=== PATIENT | female | born 1930 | race Caucasian/White ===

== ENCOUNTER 2017-03-14 11:36 | Emergency (ER) | payer MEDICARE, BC ==
[2017-03-14 15:22] VITALS: BP 138/62
--- NOTE | 2017-03-14 22:10 | ED ---
Celia Yancey Alok, scribed for Bradley Lara MD on 03/14/17 at 1528 . Hypertension - HPI Summary HPI Summary: 86 y/o female presents to the ED sent here from [address] [place] [address] for HTN. Pt states that she was recently treated for a UTI and has been taking Dementin Antibioitics since yesterday. Pt states she feels somewhat fatigued and mild "head fuzziness" and mild back tenderness. Pt states she has been drinking/ eating normally. Pt denies CP, SOB, or dizziness. Pt denies hematuria or dysuria. Pt denies fever. Pt takes Lisinopril 10 mg and Coumadin. - History of Current Complaint Chief Complaint: EDGeneral Stated Complaint: HIGH BP Time Seen by Provider: 03/14/17 14:41 Hx Obtained From: Patient Onset/Duration: Started Hours Ago, Atraumatic, Still Present Associated Signs & Symptoms: Negative - Allergies/Home Medications Allergies/Adverse Reactions: Allergies Allergy/AdvReac Type Severity Reaction Status Date / Time Sulfa Drugs Allergy Mild Rash Verified 09/27/15 14:48 Ciprofloxacin Allergy Rash Verified 09/27/15 14:48 Oxycodone Allergy Vomiting Verified 09/27/15 14:48 General anesthesia AdvReac Severe Hallucinati Uncoded 09/27/15 14:48 ons PMH/Surg Hx/FS Hx/Imm Hx Endocrine/Hematology History: Reports: Hx Anticoagulant Therapy - COUMADIN Denies: Hx Diabetes, Hx Thyroid Disease Cardiovascular History: Reports: Hx Auto Implanted Cardiovert Defib, Hx Hypertension, Hx Pacemaker/ICD - JANUARY 2012 Respiratory History: Denies: Hx Asthma, Hx Chronic Obstructive Pulmonary Disease (COPD) GI History: Reports: Other GI Disorders - COLITIS, INTESTINAL CYSTS History: Denies: Hx Renal Disease Musculoskeletal History: Reports: Hx Arthritis Denies: Hx Back Problems, Hx Bursitis, Hx Congenital Bone Abnormalities, Hx Fibromyalgia, Hx Gout, Hx Orthopedic Injury, Hx Osteoporosis, Hx Scoliosis, Hx Tendonitis, Other Musculoskeletal History Sensory History: Reports: Hx Cataracts, Hx Contacts or Glasses, Hx Vision Problem - MACHULAR DEGENERATION, Hx Hearing Aid - BL, Hx Hearing Problem Opthamlomology History: Reports: Hx Cataracts, Hx Contacts or Glasses, Hx Vision Problem - MACHULAR DEGENERATION Neurological History: Denies: Hx Dementia, Hx Seizures Comment Only: Other Neuro Impairments/Disorders - focal nuero deficit R foot Psychiatric History: Denies: Hx Substance Abuse - Cancer History Hx Chemotherapy: No Hx Radiation Therapy: No - Surgical History Surgery Procedure, Year, and Place: pacemaker placement 2010, hysterectomy 1969 , tonsillectomy 194 Hx Anesthesia Reactions: No - Immunization History Date of Tetanus Vaccine: 2011 Infectious Disease History: No Infectious Disease History: Denies: Hx Hepatitis, Hx Human Immunodeficiency Virus (HIV), Traveled Outside the US in Last 30 Days - Family History Known Family History: Positive: Other - No- Breast CA - Social History Alcohol Use: Occasionally Substance Use Type: Reports: None Smoking Status (MU): Former Smoker Review of Systems Positive: Fatigue - "Head Fuzziness". Negative: Fever, Chills Negative: Erythema Negative: Sore Throat Negative: Chest Pain Negative: Shortness Of Breath, Cough Negative: Abdominal Pain, Vomiting, Nausea Negative: dysuria, hematuria Positive: Other - Mild back tenderness . Negative: Myalgia, Edema Negative: Rash Neurological: Other - Negative: Dizziness All Other Systems Reviewed And Are Negative: Yes Physical Exam - Summary Physical Exam Summary: Constitutional: Well-developed, Well-nourished, Alert. (-) Distressed Skin: Warm, Dry HENT: Normocephalic; Atraumatic Eyes: Conjunctiva normal Neck: Musculoskeletal ROM normal neck. (-) JVD, (-) Stridor, (-) Tracheal deviation Cardio: Rhythm regular, rate normal, Heart sounds normal; Intact distal pulses; The pedal pulses are 2+ and symmetric. Radial pulses are 2+ and symmetric. (-) Murmur Pulmonary/Chest wall: Effort normal. (-) Respiratory distress, (-) Wheezes, (-) Rales Abd: Soft, (-) Tenderness, (-) Distension, (-) Guarding, (-) Rebound Musculoskeletal: (-) Edema Lymph: (-) Cervical adenopathy Neuro: Alert, Oriented x3 Psych: Mood and affect Normal Triage Information Reviewed: Yes Vital Signs On Initial Exam: Initial Vitals Temp Pulse Resp BP Pulse Ox 97.5 F 81 20 187/88 99 03/14/17 11:48 03/14/17 11:48 03/14/17 11:48 03/14/17 11:48 03/14/17 11:48 Vital Signs Reviewed: Yes - Galina Coma Scale Coma Scale Total: 15 Diagnostics - Vital Signs Vital Signs Temp Pulse Resp BP Pulse Ox 03/14/17 13:22 98.1 F 80 20 149/60 97 03/14/17 11:51 98.4 F 75 20 197/88 99 03/14/17 11:48 97.5 F 81 20 187/88 99 - Laboratory Lab Statement: Any lab studies that have been ordered have been reviewed, and results considered in the medical decision making process. Hypertension Course/Dx - Course Course Of Treatment: UTI appears adequately treated pending cultures. No indication for emergent INR check. HTN appears asymtomatic. - Diagnoses Provider Diagnoses: UTI (urinary tract infection), HTN (hypertension) Discharge - Discharge Plan Condition: Stable Disposition: HOME Patient Education Materials: Urinary Tract Infection in Women (ED), Chronic Hypertension (ED) Referrals: Gladis Johns MD [Primary Care Provider] - 2 Days Additional Instructions: Please follow up with your primary care provider in 2-3 days. Please keep your current appointment to check INR RETURN TO THE EMERGENCY DEPARTMENT FOR CHANGING OR WORSENING SYMPTOMS The documentation as recorded by the Celia jane Alok accurately reflects the service I personally performed and the decisions made by , Bradley Lara MD.
== END 2017-03-14 15:21 | disposition home or self-care (01) ==
LOC: ED 11:36
DX: N39.0 Urinary tract infection, site not specified (principal); R53.83 Other fatigue; I10 Essential (primary) hypertension; M54.9 Dorsalgia, unspecified
CPT/HCPCS: 99281

== ENCOUNTER 2017-06-12 20:28 | Observation (INO) | payer MEDICARE, BC ==
--- NOTE | 2017-06-12 22:12 | RAD ---
Indication: Dizziness. Nausea. History of atrial fibrillation. Comparison: July 08, 2015 Technique: Upright AP 2120 hours Report: RIGHT atrial and RIGHT ventricular level pacemaker leads appear unchanged. Negative for cardiomegaly. Unremarkable central pulmonary vasculature. Rarefaction of pulmonary markings suggesting emphysema. No focal pulmonary lesion, alveolar consolidation, pleural effusion, pneumothorax. Negative for free air beneath the diaphragm. IMPRESSION: Stigmata of probable emphysema. No acute cardiopulmonary process evident.
[2017-06-12 22:23] LABS: Hematocrit 38 % (35-47); Hemoglobin 13.2 g/dl (12.0-16.0); Mean Corpuscular HGB Conc 35 g/dl (31-36); Mean Corpuscular Hemoglobin 33 pg (27-31); Mean Corpuscular Volume 94 fL (80-97); Mean Platelet Volume 9 um3 (7.4-10.4); Red Blood Count 4.07 10^6/ul (4.0-5.4); Red Cell Distribution Width 13 % (10.5-15); White Blood Count 5.8 10^3/ul (3.5-10.8)
[2017-06-12 22:32] LABS: Albumin 3.3 g/dL (3.2-5.2); BUN/Creatinine Ratio 18.8 (8-20); C Reactive Protein 13.43 mg/L (< 5.00); EGFR African American 81.2 (>60); EGFR Non-African American 63.1 (>60); Globulin 2.8 g/dL (2-4); Magnesium 1.8 mg/dL (1.9-2.7); Total Bilirubin 0.8 mg/dL (0.2-1.0); Total Protein 6.1 g/dL (6.4-8.9)
[2017-06-12 22:34] LABS: Troponin I 0.01 ng/mL (<0.04)
[2017-06-12 22:55] LABS: TSH (Thyroid Stimulating Horm) 4.08 mcIU/mL (0.34-5.60)
[2017-06-12] MEDS ORDERED: Ondansetron INJ* 2 MG/ML VIAL IV PRN (23:09)
[2017-06-12] MEDS ORDERED: Docusate CAP* 100 MG PO PRN (23:09)
[2017-06-12] MEDS ORDERED: Senna TAB PO PRN (23:09)
[2017-06-12] MEDS ORDERED: Al Hydrox/Mg Hydrox/Simet LIQ* 30 ML UDC PO PRN (23:09)
[2017-06-12] MEDS ORDERED: Acetaminophen TAB* 325 MG PO PRN (23:09)
[2017-06-12] MEDS ORDERED: Zolpidem TAB* 5 MG PO PRN (23:20)
[2017-06-12] MEDS ORDERED: NS 0.9% 500 ML BAG* 500 ML IV SCH (23:45)
--- NOTE | 2017-06-13 01:06 | PN ---
Progress Note - Progress Note Date of Service: 06/13/17 Note: Patient with notable orthostatic hypotension. Will d/c Topcandice.
[2017-06-13] MEDS ORDERED: Warfarin TAB(*) 2.5 MG PO SCH (01:45)
[2017-06-13 04:46] LABS: Urine Bacteria Absent (Absent); Urine Bilirubin Negative (Negative); Urine Glucose Negative (Negative); Urine Nitrite Negative (Negative)
--- NOTE | 2017-06-13 05:18 | ED ---
I, Chintan,Iraida, scribed for Marie Trejo MD on 06/12/17 at 2135 . Dizziness - HPI Summary HPI Summary: This 86 y/o female presents to ED for lightheaded dizziness since 1830 PM. No room spinning. Negative syncope, WHITAKER, SOB, or dysuria. Positive mild nausea. Pt recently had prolonged car ride form [place], [place] until noon today. Pt states that she may have not kept herself well hydrated. PMHx includes recent UTI with finished abx treatment 4 days ago. Other PMHx includes HTN, a-fib s/p pacemaker placement with hx of coumadin treatment, and interstitial cystitis. She is s/p tonsillectomy and hysterectomy. Primary care involves Gladis Rios. Pt is currently on Elmiron (for interstitial cystitis), Toprol, sotalol, ASA, calcium , warfarin, lisinopril, vitamin supplement. She took ASA [employer]. - History Of Current Complaint Chief Complaint: EDDizziness Stated Complaint: NAUSEA/DIZZY Time Seen by Provider: 06/12/17 21:16 Hx Obtained From: Patient, Family/Animal [facility] Office Supervisor - Niece present at bedside, Medical Records Onset/Duration: Gradually Timing: Constant Severity Initially: Moderate Severity Currently: Moderate Character: Lightheaded Aggravating Factor(s): Nothing Alleviating Factor(s): Nothing Associated Signs And Symptoms: Positive: Nausea. Negative: Vomiting, Chest Pain , SOB, Fever - Allergies/Home Medications Allergies/Adverse Reactions: Allergies Allergy/AdvReac Type Severity Reaction Status Date / Time Sulfa Drugs Allergy Mild Rash Verified 06/12/17 21:12 Ciprofloxacin Allergy Rash Verified 06/12/17 21:12 Oxycodone Allergy Vomiting Verified 06/12/17 21:12 General anesthesia AdvReac Severe Hallucinati Uncoded 06/12/17 21:12 ons Home Medications: Home Medications Pentosan Polysulfate Sod (NF) [Elmiron (NF)] 100 mg PO 06/12/17 [History] PMH/Surg Hx/FS Hx/Imm Hx Endocrine/Hematology History: Reports: Hx Anticoagulant Therapy - COUMADIN Denies: Hx Diabetes, Hx Thyroid Disease Cardiovascular History: Reports: Hx Auto Implanted Cardiovert Defib, Hx Hypertension, Hx Pacemaker/ICD - JANUARY 2012 Respiratory History: Denies: Hx Asthma, Hx Chronic Obstructive Pulmonary Disease (COPD) GI History: Reports: Other GI Disorders - COLITIS, INTESTINAL CYSTS History: Denies: Hx Renal Disease Musculoskeletal History: Reports: Hx Arthritis Denies: Hx Back Problems, Hx Bursitis, Hx Congenital Bone Abnormalities, Hx Fibromyalgia, Hx Gout, Hx Orthopedic Injury, Hx Osteoporosis, Hx Scoliosis, Hx Tendonitis, Other Musculoskeletal History Sensory History: Reports: Hx Cataracts, Hx Contacts or Glasses, Hx Vision Problem - MACULAR DEGENERATION, Hx Hearing Aid - BL, Hx Hearing Problem Opthamlomology History: Reports: Hx Cataracts, Hx Contacts or Glasses, Hx Vision Problem - MACULAR DEGENERATION Neurological History: Denies: Hx Dementia, Hx Seizures Psychiatric History: Denies: Hx Substance Abuse - Cancer History Hx Chemotherapy: No Hx Radiation Therapy: No - Surgical History Surgery Procedure, Year, and Place: pacemaker placement 2010, hysterectomy 1969 , tonsillectomy 1941 Hx Anesthesia Reactions: No - Immunization History Date of Tetanus Vaccine: 2011 Date of Influenza Vaccine: unk Infectious Disease History: No Infectious Disease History: Denies: Hx Hepatitis, Hx Human Immunodeficiency Virus (HIV), Traveled Outside the US in Last 30 Days - Family History Known Family History: Positive: Cardiac Disease - Father, Other - No- Breast CA. Positive unspecified "kidney problem" to mother - Social History Alcohol Use: Occasionally Substance Use Type: Reports: None Smoking Status (MU): Former Smoker Review of Systems Negative: Fever Negative: Chest Pain Negative: Shortness Of Breath Positive: Nausea. Negative: Vomiting Negative: dysuria Musculoskeletal: Negative Skin: Negative Neurological: Other - Positive lightheaded dizziness Psychological: Normal All Other Systems Reviewed And Are Negative: Yes Physical Exam Triage Information Reviewed: Yes Vital Signs On Initial Exam: Initial Vitals Temp Pulse Resp BP Pulse Ox 97.1 F 67 16 163/74 95 06/12/17 20:47 06/12/17 20:47 06/12/17 20:47 06/12/17 20:47 06/12/17 20:47 Vital Signs Reviewed: Yes Appearance: Positive: No Pain Distress, Well-Nourished, Ill-Appearing Skin: Positive: Warm, Skin Color Reflects Adequate Perfusion, Dry. Negative: Cyanosis @ Head/Face: Positive: Normal Head/Face Inspection Eyes: Positive: EOMI, JENNIFER, Conjunctiva Clear ENT: Positive: Normal ENT inspection, Pharynx normal, TMs normal. Negative: Muffled/hoarse voice Neck: Positive: Supple, Nontender, No Lymphadenopathy Respiratory/Lung Sounds: Positive: Clear to Auscultation, Breath Sounds Present Cardiovascular: Positive: RRR, Pulses are Symmetrical in both Upper and Lower Extremities, Other - Pacemker palpable at left anterior chest Abdomen Description: Positive: Nontender, No Organomegaly, Soft. Negative: Bruit, Distended, Guarding, Hepatomegaly, McBurney's Point Tenderness, Peritoneal Signs, Pulsatile Mass, Splenomegaly Bowel Sounds: Positive: Present Musculoskeletal: Positive: Strength/ROM Intact. Negative: Jered Sign Left, Jered Sign Right, Edema Left, Edema Right, Other - Negative Homans BLE. Mild kyphosis. Neurological: Positive: Sensory/Motor Intact, Alert, Oriented to Person Place, Time, Facial Symmetry, Speech Normal Psychiatric: Positive: Affect/Mood Appropriate AVPU Assessment: Alert - [place] Coma Scale Coma Scale Total: 15 Diagnostics - Vital Signs Vital Signs Temp Pulse Resp BP Pulse Ox 06/12/17 20:47 97.1 F 67 16 163/74 95 - Laboratory Lab Results: Lab Results 06/12/17 06/12/17 06/12/17 Range/Units 22:05 22:05 22:05 WBC 5.8 (3.5-10.8) 10^3/ul RBC 4.07 (4.0-5.4) 10^6/ul Hgb 13.2 (12.0-16.0) g/dl Hct 38 (35-47) % MCV 94 (80-97) fL MCH 33 H (27-31) pg MCHC 35 (31-36) g/dl RDW 13 (10.5-15) % Plt Count 122 L (150-450) 10^3/ul MPV 9 (7.4-10.4) um3 Neut % (Auto) 58.0 (38-83) % Lymph % (Auto) 29.2 (25-47) % [place] % (Auto) 10.9 H (1-9) % Eos % (Auto) 1.6 (0-6) % Baso % (Auto) 0.3 (0-2) % Absolute Neuts (auto) 3.3 (1.5-7.7) 10^3/ul Absolute Lymphs (auto) 1.7 (1.0-4.8) 10^3/ul Absolute Monos (auto) 0.6 (0-0.8) 10^3/ul Absolute Eos (auto) 0.1 (0-0.6) 10^3/ul Absolute Basos (auto) 0 (0-0.2) 10^3/ul Absolute Nucleated RBC 0 10^3/ul Nucleated RBC % 0 INR (Anticoag Therapy) 1.56 H (0.89-1.11) APTT 35.1 (26.0-36.3) seconds D-Dimer, Quantitative < 200 (Less Than 230) ng/mL Sodium 125 L (133-145) mmol/L Potassium 4.0 (3.5-5.0) mmol/L Chloride 93 L (101-111) mmol/L Carbon Dioxide 26 (22-32) mmol/L Anion Gap 6 (2-11) mmol/L BUN 16 (6-24) mg/dL Creatinine 0.85 (0.51-0.95) mg/dL Est GFR ( Amer) 81.2 (>60) Est GFR (Non-Af Amer) 63.1 (>60) BUN/Creatinine Ratio 18.8 (8-20) Glucose 93 (70-100) mg/dL Lactic Acid (0.5-2.0) mmol/L Calcium 9.0 (8.6-10.3) mg/dL Magnesium 1.8 L (1.9-2.7) mg/dL Total Bilirubin 0.80 (0.2-1.0) mg/dL AST 20 (13-39) U/L ALT 10 (7-52) U/L Alkaline Phosphatase 67 (34-104) U/L Total Creatine Kinase 33 (10-223) U/L Troponin I 0.01 (<0.04) ng/mL C-Reactive Protein 13.43 H (< 5.00) mg/L B-Natriuretic Peptide ( - 100) pg/mL Total Protein 6.1 L (6.4-8.9) g/dL Albumin 3.3 (3.2-5.2) g/dL Globulin 2.8 (2-4) g/dL Albumin/Globulin Ratio 1.2 (1-3) TSH 4.08 (0.34-5.60) mcIU/mL 06/12/17 06/12/17 Range/Units 22:05 22:05 WBC (3.5-10.8) 10^3/ul RBC (4.0-5.4) 10^6/ul Hgb (12.0-16.0) g/dl Hct (35-47) % MCV (80-97) fL MCH (27-31) pg MCHC (31-36) g/dl RDW (10.5-15) % Plt Count (150-450) 10^3/ul MPV (7.4-10.4) um3 Neut % (Auto) (38-83) % Lymph % (Auto) (25-47) % [place] % (Auto) (1-9) % Eos % (Auto) (0-6) % Baso % (Auto) (0-2) % Absolute Neuts (auto) (1.5-7.7) 10^3/ul Absolute Lymphs (auto) (1.0-4.8) 10^3/ul Absolute Monos (auto) (0-0.8) 10^3/ul Absolute Eos (auto) (0-0.6) 10^3/ul Absolute Basos (auto) (0-0.2) 10^3/ul Absolute Nucleated RBC 10^3/ul Nucleated RBC % INR (Anticoag Therapy) (0.89-1.11) APTT (26.0-36.3) seconds D-Dimer, Quantitative (Less Than 230) ng/mL Sodium (133-145) mmol/L Potassium (3.5-5.0) mmol/L Chloride (101-111) mmol/L Carbon Dioxide (22-32) mmol/L Anion Gap (2-11) mmol/L BUN (6-24) mg/dL Creatinine (0.51-0.95) mg/dL Est GFR ( Amer) (>60) Est GFR (Non-Af Amer) (>60) BUN/Creatinine Ratio (8-20) Glucose (70-100) mg/dL Lactic Acid 0.8 (0.5-2.0) mmol/L Calcium (8.6-10.3) mg/dL Magnesium (1.9-2.7) mg/dL Total Bilirubin (0.2-1.0) mg/dL AST (13-39) U/L ALT (7-52) U/L Alkaline Phosphatase (34-104) U/L Total Creatine Kinase (10-223) U/L Troponin I (<0.04) ng/mL C-Reactive Protein (< 5.00) mg/L B-Natriuretic Peptide 112 H ( - 100) pg/mL Total Protein (6.4-8.9) g/dL Albumin (3.2-5.2) g/dL Globulin (2-4) g/dL Albumin/Globulin Ratio (1-3) TSH (0.34-5.60) mcIU/mL Result Diagrams: 06/12/17 22:05 06/12/17 22:05 Lab Statement: Any lab studies that have been ordered have been reviewed, and results considered in the medical decision making process. - Radiology CXR Xray Interpretation: No Acute Changes - Stigmata of probable emphysema. No acute cardiopulmonary process evident. Radiology Interpretation Completed By: Radiologist - EKG 2152 Cardiac Rate: Other Rate - Paced EKG Interpretation: 100 % Paced. QRS -9. Dizzy Course/Dx - Course Assessment/Plan: This 86 y/o female presents to ED for dizziness and mild nausea since 1830 PM. Pt just finished her long car ride from [place], [place] to [place] at noon today. PMHx is significant for afib with coumadin tx and pacemaker in place and HTN. Bloodwork is wnl except for elevated CRP of 13.43 and BNP of 112. CXR is normal. Pt drops her BP significantly from lying to standing position. Plan of care is discussed with Dr. Ferrer, who is agreeable to admission. - Diagnoses Differential Diagnosis/HQI/PQRI: Benign Paroxysmal Positional Vertigo, Coronary Artery Disease, CVA, Dysrhythmia, Medication Reaction, Metabolic Abnormality, Transient Ischemic Attack Provider Diagnoses: Acute onset of severe vertigo, Orthostatic hypotension, Acute hyponatremia - Provider Notifications Discussed Care Of Patient With: Ingrid Ferrer Time Discussed With Above Provider: 23:54 Instructed by Provider To: Admit As Observation Discharge - Discharge Plan Condition: Stable Disposition: ADMITTED TO [facility] The documentation as recorded by the Chintan jane Soohyun accurately reflects the service I personally performed and the decisions made by , Marie Trejo MD.
[2017-06-13 05:33] LABS: Calcium 8.8 mg/dL (8.6-10.3); EGFR African American 88.3 (>60); EGFR Non-African American 68.7 (>60); Potassium 3.9 mmol/L (3.5-5.0)
[2017-06-13 05:35] LABS: Troponin I 0.01 ng/mL (<0.04)
[2017-06-13] MEDS: Heparin VIAL(*) 5000 UNITS/ML VIAL (FIVE THOUSAND) SUBCUT SCH ×2 (05:56→15:42)
[2017-06-13 06:15] LABS: BUN/Creatinine Ratio 17.7 (8-20)
--- NOTE | 2017-06-13 06:32 | HP ---
CC: Gladis Johns MD * HISTORY AND PHYSICAL: DATE OF ADMISSION: 06/12/17 TIME OF EVALUATION: 2300 PRIMARY CARE PHYSICIAN: Gladis Johns MD CHIEF COMPLAINT: Lightheadedness. HISTORY OF PRESENT ILLNESS: This is an 86-year-old female with past medical history of atrial fibrillation, on Coumadin and pacemaker placement who presented to the emergency room stating around 6 p.m. this evening, she felt dizzy. She denied feeling that the room was spinning and it seemed to be more that she was lightheaded and felt unsteady on her feet. She states that the lightheadedness comes and goes initially, was getting worse with lying down, sitting up helped. Now it seems that sitting up has made it worse. Overall, it seems to be a little better. She is nauseous. No vomiting. No headache. No vision changes. She feels her lower extremities and her legs are weak. She denies any changes in her medications other than she was on an antibiotic for UTI that she completed on the . She denies any chest pain, no shortness of breath, no vomiting, no diarrhea, no abdominal pain. No melena or bright red blood per rectum. She denies any recent URI symptoms. No fevers or chills. Otherwise, review of systems is negative. In the emergency room, the patient had labs, imaging, was referred to the hospitalist service for further evaluation. Of note, the ER staff states that she did complain of chest pain. She denied having any chest pain on my encounter. PAST MEDICAL HISTORY: 1. Atrial fibrillation, on anticoagulation. 2. History of tachy-gerri syndrome, status post pacemaker placement. 3. Hypertension. 4. History of interstitial cystitis. 5. History of hysterectomy. 6. History of tonsillectomy. 7. History of macular degeneration. MEDICATIONS: 1. Ambien 5 mg at bedtime as needed for sleep. 2. Coumadin 2.5 mg Tuesday, Tuesday, Tuesday, , Tuesday and 5 mg on Tuesday and Tuesday. 3. Lisinopril 5 mg daily. 4. Sotalol 80 mg in the evening and 40 mg in the morning. 5. Multivitamin. 6. Vitamin B12 500 mcg daily. 7. Vitamin D 400 units daily. 8. Aspirin 81 mg daily. 9. Metoprolol succinate 25 mg daily. 10. Elmiron as needed. ALLERGIES: SULFA, CIPROFLOXACIN, OXYCODONE, and GENERAL ANESTHESIA. FAMILY HISTORY: Mother at age 79 from coronary artery disease. Father at age 78 from CKD. SOCIAL HISTORY: The patient is a . She lives alone. She ambulates independently. She does the stairs as well without any difficulty. She is independent with her ADLs. Her healthcare proxies are, Ira Geronimo, her ex- daughter- in-law, and Christie Cortés, her great granddaughter. No history of smoking, alcohol, or illicit drug use. We discussed her code status and she is a DNR/DNI. MOLST form will be completed this evening. REVIEW OF SYSTEMS: A 14-point review of systems mentioned, reviewed. Positive pertinent and negatives are mentioned in the HPI, otherwise negative. PHYSICAL EXAMINATION GENERAL: In no acute distress, elderly female. VITAL SIGNS: Temperature 97.1, pulse rate 67, respiratory rate 16, oxygen saturation 95% on room air, blood pressure 163/74. HEENT: Head normocephalic. Pupils are equal and reactive. Extraocular muscles intact. No nystagmus appreciated, anicteric. Oropharynx: Mucous membranes moist. No erythema or exudate. NECK: Supple. No lymphadenopathy. RESPIRATORY: Diminished breath sounds. No wheezes, rhonchi, or rales. CARDIAC: Regular rate and rhythm. Soft, systolic murmur heard throughout. ABDOMEN: Soft, nontender, nondistended. EXTREMITIES: No clubbing, cyanosis, or edema. +1 DP. NEUROLOGIC: Cranial nerves II through XII intact. Possibly a subtle left facial droop. Negative pronator drift. Upper and lower muscle strength equal and symmetric. Alert and oriented x3. LABORATORY DATA: White count 5.8, hemoglobin 13.2, hematocrit 38, platelets 122. INR is 1.56. D-dimer is less than 200. Sodium 125, potassium 4, chloride 93, bicarb 26, BUN 16, creatinine 0.85, magnesium 1.8. Troponin 0.01. BNP 112. TSH 4.08. RADIOGRAPHIC DATA: Chest x-ray shows stigmata of probable emphysema. No acute cardiopulmonary process is evident. EKG shows normal sinus rhythm with atrial paced and right bundle branch block. ASSESSMENT: This is an 86-year-old female with a past medical history of atrial fibrillation, on anticoagulation and pacemaker placement who presents to the emergency room with lightheadedness. Lightheadedness. Assessment: It is unclear of the etiology. She does have hyponatremia. Looking at her past sodium levels, they have all been normal, but have not been recorded here since 2015. She denies any new medications. I have no urine back yet. Could have been another UTI. Could be an intracranial process. I am less likely suspicious for a cardiac process. Plan: We will admit her to telemetry. We will check a head CT. I have given her 500 cc of normal saline. Recheck her labs in the morning. We will check a serum and urine osmolality and a urine sodium. This could be SIADH. If her sodium does not improve with 500 cc, then may need to be fluid restricted. We also plan for a PT eval due to her unsteadiness and living alone and follow up further information. CHRONIC MEDICAL PROBLEMS: 1. We will resume her home medications that is prescribed. 2. Diet: Place her on a regular diet. 3. DVT prophylaxis. The patient scores high risk. Placed her on heparin subcu t.i.d. 4. Code status. We discussed her MOLST form, and she will be a DNR/DNR that will be completed this evening. PATIENT TIME: Greater than 70 minutes spent doing the history and physical, more than half the time spent in direct patient contact. [id number]/CPS #: [id number] MTDD
--- NOTE | 2017-06-13 07:54 | RAD ---
HISTORY: Dizziness COMPARISONS: July 08, 2015 TECHNIQUE: Multiple contiguous axial CT scans were obtained of the head without intravenous contrast. FINDINGS: HEMORRHAGE/INFARCT: There is no hemorrhage or acute infarct. MASSES/SHIFT: There is no mass or shift. EXTRA-AXIAL SPACES: There are no extra-axial fluid collections. SULCI AND VENTRICLES: The sulci and ventricles are normal in size and position for the patient's stated age. CEREBRUM: There is hypoattenuation of the periventricular and subcortical white matter. BRAINSTEM: There are no focal parenchymal abnormalities. CEREBELLUM: There are no focal parenchymal abnormalities. VESSELS: The vessels are grossly normal. PARANASAL SINUSES: The paranasal sinuses are clear. ORBITS: The orbits are unremarkable. BONES AND SOFT TISSUE: No bone or soft tissue abnormalities are noted. OTHER: None IMPRESSION: NO ACUTE INTRACRANIAL PATHOLOGY. CHRONIC SMALL VESSEL ISCHEMIC CHANGES.
[2017-06-13] MEDS ORDERED: Lisinopril TAB* 5 MG PO SCH (09:00)
[2017-06-13] MEDS ORDERED: Metoprolol Succinate XL TAB* 25 MG PO SCH (09:00)
[2017-06-13] MEDS ORDERED: Cyanocobalamin TAB* 500 MCG PO SCH (09:00)
[2017-06-13] MEDS ORDERED: Cholecalciferol TAB* 400 UNIT PO SCH (09:00)
[2017-06-13] MEDS ORDERED: Aspirin EC Low Dose* 81 MG TAB.EC PO SCH (09:00)
[2017-06-13] MEDS ORDERED: Multivitamins/Minerals TAB PO SCH (09:00)
[2017-06-13] MEDS ORDERED: Sotalol TAB* 80 MG PO SCH ×3 (09:00→18:00)
--- NOTE | 2017-06-13 12:09 | PN ---
Subjective Date of Service: 06/13/17 Interval History: Pt is feeling well. Her lightheadedness has resolved. She thinks it is possible she could have gotten dehydrated as she was on vacation and not drinking as much as she usually does. She did 2 laps around the unit without any significant difficulty. Objective Active Medications: Acetaminophen (Tylenol Tab*) 650 mg PO Q4H PRN PRN Reason: FEVER/PAIN Al Hydrox/Mg Hydrox/Simethicone (Maalox Plus*) 30 ml PO Q6H PRN PRN Reason: INDIGESTION Aspirin (Aspirin Ec Low Dose*) 81 mg PO DAILY [facility] Last Admin: 06/13/17 09:02 Dose: 81 mg Cholecalciferol (Vitamin D Tab*) 400 unit PO DAILY [facility] Last Admin: 06/13/17 09:01 Dose: 400 unit Cyanocobalamin (Vitamin B12 Tab*) 500 mcg PO DAILY [facility] Last Admin: 06/13/17 09:01 Dose: 500 mcg Docusate Sodium (Colace Cap*) 100 mg PO BID PRN PRN Reason: CONSTIPATION Heparin Sodium (Porcine) (Heparin Vial(*)) 5,000 units SUBCUT Q8HR [facility] Last Admin: 06/13/17 05:56 Dose: 5,000 units Lisinopril (Prinivil Tab*) 5 mg PO DAILY [facility] Last Admin: 06/13/17 09:01 Dose: 5 mg Multivitamins/Minerals (Theragran/Minerals Tab*) 1 tab PO DAILY [facility] Last Admin: 06/13/17 09:01 Dose: 1 tab Ondansetron HCl (Zofran Inj*) 4 mg IV Q4H PRN PRN Reason: NAUSEA/VOMITING Senna (Senokot Tab*) 1 tab PO BID PRN PRN Reason: CONSTIPATION Sotalol HCl (Betapace Tab*) 40 mg PO QAM [facility] Last Admin: 06/13/17 09:02 Dose: 40 mg Sotalol HCl (Betapace Tab*) 40 mg PO QPM [facility] Warfarin Sodium (Coumadin Tab(*)) 2.5 mg PO SuMoTuThSa@1700 BRAYNA PRN Reason: Protocol Last Admin: 06/13/17 02:40 Dose: 2.5 mg Warfarin Sodium (Coumadin Tab(*)) 5 mg PO WeFr@1700 [facility] PRN Reason: Protocol Zolpidem Tartrate (Ambien Tab*) 5 mg PO BEDTIME PRN PRN Reason: SLEEP Vital Signs 06/12/17 06/13/17 06/13/17 23:30 01:02 02:19 Temperature 97.5 F Pulse Rate 77 63 83 Respiratory 25 19 Rate Blood Pressure 147/71 119/60 139/60 (mmHg) O2 Sat by Pulse 97 99 Oximetry 06/13/17 06/13/17 06/13/17 02:20 03:42 03:44 Temperature 97.5 F 97.5 F Pulse Rate 83 63 67 Respiratory 20 16 Rate Blood Pressure 139/60 156/67 155/74 (mmHg) O2 Sat by Pulse 99 98 Oximetry 06/13/17 06/13/17 03:46 07:59 Temperature 97.5 F Pulse Rate 66 81 Respiratory 16 Rate Blood Pressure 145/74 146/74 (mmHg) O2 Sat by Pulse 100 Oximetry Oxygen Devices in Use Now: None Appearance: Elderly female sitting up in bed, NAD Eyes: No Scleral Icterus Ears/Nose/Mouth/Throat: Mucous Membranes Moist Respiratory: Symmetrical Chest Expansion and Respiratory Effort, Clear to Auscultation Cardiovascular: NL Sounds; No Murmurs; No JVD, RRR, No Edema Abdominal: NL Sounds; No Tenderness; No Distention Extremities: No Clubbing, Cyanosis Skin: No Rash or Ulcers, No Nodules or Sclerosis Neurological: Alert and Oriented x 3 Result Diagrams: 06/12/17 22:05 06/13/17 05:07 Additional Lab and Data: Lab Results 06/12/17 06/12/17 06/12/17 Range/Units 22:05 22:05 22:05 WBC 5.8 (3.5-10.8) 10^3/ul RBC 4.07 (4.0-5.4) 10^6/ul Hgb 13.2 (12.0-16.0) g/dl Hct 38 (35-47) % MCV 94 (80-97) fL MCH 33 H (27-31) pg MCHC 35 (31-36) g/dl RDW 13 (10.5-15) % Plt Count 122 L (150-450) 10^3/ul MPV 9 (7.4-10.4) um3 Neut % (Auto) 58.0 (38-83) % Lymph % (Auto) 29.2 (25-47) % Pettis % (Auto) 10.9 H (1-9) % Eos % (Auto) 1.6 (0-6) % Baso % (Auto) 0.3 (0-2) % Absolute Neuts (auto) 3.3 (1.5-7.7) 10^3/ul Absolute Lymphs (auto) 1.7 (1.0-4.8) 10^3/ul Absolute Monos (auto) 0.6 (0-0.8) 10^3/ul Absolute Eos (auto) 0.1 (0-0.6) 10^3/ul Absolute Basos (auto) 0 (0-0.2) 10^3/ul Absolute Nucleated RBC 0 10^3/ul Nucleated RBC % 0 INR (Anticoag Therapy) 1.56 H (0.89-1.11) APTT 35.1 (26.0-36.3) seconds D-Dimer, Quantitative < 200 (Less Than 230) ng/mL Sodium 125 L (133-145) mmol/L Potassium 4.0 (3.5-5.0) mmol/L Chloride 93 L (101-111) mmol/L Carbon Dioxide 26 (22-32) mmol/L Anion Gap 6 (2-11) mmol/L BUN 16 (6-24) mg/dL Creatinine 0.85 (0.51-0.95) mg/dL Est GFR ( Amer) 81.2 (>60) Est GFR (Non-Af Amer) 63.1 (>60) BUN/Creatinine Ratio 18.8 (8-20) Glucose 93 (70-100) mg/dL Lactic Acid (0.5-2.0) mmol/L Calcium 9.0 (8.6-10.3) mg/dL Magnesium 1.8 L (1.9-2.7) mg/dL Total Bilirubin 0.80 (0.2-1.0) mg/dL AST 20 (13-39) U/L ALT 10 (7-52) U/L Alkaline Phosphatase 67 (34-104) U/L Total Creatine Kinase 33 (10-223) U/L Troponin I 0.01 (<0.04) ng/mL C-Reactive Protein 13.43 H (< 5.00) mg/L B-Natriuretic Peptide ( - 100) pg/mL Total Protein 6.1 L (6.4-8.9) g/dL Albumin 3.3 (3.2-5.2) g/dL Globulin 2.8 (2-4) g/dL Albumin/Globulin Ratio 1.2 (1-3) TSH 4.08 (0.34-5.60) mcIU/mL 06/12/17 06/12/17 Range/Units 22:05 22:05 WBC (3.5-10.8) 10^3/ul RBC (4.0-5.4) 10^6/ul Hgb (12.0-16.0) g/dl Hct (35-47) % MCV (80-97) fL MCH (27-31) pg MCHC (31-36) g/dl RDW (10.5-15) % Plt Count (150-450) 10^3/ul MPV (7.4-10.4) um3 Neut % (Auto) (38-83) % Lymph % (Auto) (25-47) % [place] % (Auto) (1-9) % Eos % (Auto) (0-6) % Baso % (Auto) (0-2) % Absolute Neuts (auto) (1.5-7.7) 10^3/ul Absolute Lymphs (auto) (1.0-4.8) 10^3/ul Absolute Monos (auto) (0-0.8) 10^3/ul Absolute Eos (auto) (0-0.6) 10^3/ul Absolute Basos (auto) (0-0.2) 10^3/ul Absolute Nucleated RBC 10^3/ul Nucleated RBC % INR (Anticoag Therapy) (0.89-1.11) APTT (26.0-36.3) seconds D-Dimer, Quantitative (Less Than 230) ng/mL Sodium (133-145) mmol/L Potassium (3.5-5.0) mmol/L Chloride (101-111) mmol/L Carbon Dioxide (22-32) mmol/L Anion Gap (2-11) mmol/L BUN (6-24) mg/dL Creatinine (0.51-0.95) mg/dL Est GFR ( Amer) (>60) Est GFR (Non-Af Amer) (>60) BUN/Creatinine Ratio (8-20) Glucose (70-100) mg/dL Lactic Acid 0.8 (0.5-2.0) mmol/L Calcium (8.6-10.3) mg/dL Magnesium (1.9-2.7) mg/dL Total Bilirubin (0.2-1.0) mg/dL AST (13-39) U/L ALT (7-52) U/L Alkaline Phosphatase (34-104) U/L Total Creatine Kinase (10-223) U/L Troponin I (<0.04) ng/mL C-Reactive Protein (< 5.00) mg/L B-Natriuretic Peptide 112 H ( - 100) pg/mL Total Protein (6.4-8.9) g/dL Albumin (3.2-5.2) g/dL Globulin (2-4) g/dL Albumin/Globulin Ratio (1-3) TSH (0.34-5.60) mcIU/mL Assess/Plan/Problems-Billing Ms Dasilva is an 86 yo F who has a h/o afib on coumadin and HTN who presented to the ER with c/o lightheadedness and was found to be orthostatic. - Patient Problems (1) Lightheadedness Current Visit: Yes Status: Acute Code(s): R42 - DIZZINESS AND GIDDINESS SNOMED Code(s): 514168497 Comment: Likely secondary to orthostasis. Her lightheadedness has resolved at this time. COntinue to hold metoprolol XL and she can follow up with her PCP to determine if this should be added back. (2) Hyponatremia Current Visit: Yes Status: Acute Code(s): E87.1 - HYPO-OSMOLALITY AND HYPONATREMIA SNOMED Code(s): 74190338 Comment: Improved with hydration. Will repeat at 1500 and if stable or improved d/c pt home. (3) HTN (hypertension) Current Visit: Yes Status: Acute Code(s): I10 - ESSENTIAL (PRIMARY) HYPERTENSION SNOMED Code(s): 92932762 Comment: Good control despite holding metoprolol XL. (4) Afib Current Visit: Yes Status: Acute Code(s): I48.91 - UNSPECIFIED ATRIAL FIBRILLATION SNOMED Code(s): 77682950 Comment: Regular rhythm on exam today. Continue sotalol at home dose. I will have pt take 5mg of coumadin tonight as her INR is sub therapeutic then go back to her usual regimen. Follow up INR 06/15/17. (5) DVT prophylaxis Current Visit: Yes Status: Acute Code(s): GJA6769 - SNOMED Code(s): 143350134 Comment: SQ heparin (6) DNR (do not resuscitate) Current Visit: Yes Status: Acute Status and Disposition: d/c home this afternoon if pt's Na stable or improved
[2017-06-13 12:29] VITALS: BP 147/72
--- NOTE | 2017-06-14 03:48 | DS ---
CC: Dr. Gladis Johns * DISCHARGE SUMMARY: DATE OF ADMISSION: 06/12/17 DATE OF DISCHARGE: 06/13/17 PRIMARY CARE PROVIDER: Dr. Gladis Johns. PRINCIPAL DIAGNOSIS: Lightheadedness, likely secondary to orthostasis. SECONDARY DIAGNOSES: 1. Hyponatremia - improved and secondary to volume depletion. 2. Hypertension. 3. Atrial fibrillation. DISCHARGE MEDICATIONS: 1. Ambien 5 mg p.o. q.h.s. p.r.n. insomnia. 2. Coumadin 5 mg tonight, then 5 mg p.o. Tuesday and Tuesday, and 2.5 mg Tuesday, Tuesday, Tuesday, , and Tuesday. 3. Lisinopril 5 mg p.o. daily. 4. Sotalol 80 mg p.o. q.h.s., 40 mg p.o. q.a.m. 5. Multivitamin 1 tab p.o. daily. 6. Vitamin B12 500 mcg p.o. daily. 7. Vitamin D 400 units p.o. daily. 8. Aspirin 81 mg p.o. daily. 9. Elmiron 100 mg p.o. HOSPITAL COURSE: Ms. Dasilva is an 86-year-old female, who was away on vacation over the last few days and presented to the emergency room on 06/12/17 with complaints of lightheadedness. The patient described lightheadedness is more of feeling of faintness and unsteadiness on her feet. The patient was found to be orthostatic. She received IV fluid hydration and with this, the patient's symptoms and orthostasis improved. Of note, the patient was also found to be hyponatremic on admission with sodium of 125. With IV fluid hydration, the patient's sodium level has climbed to 130 on the day of the discharge. At this point, the patient is felt to be stable for discharge home. Of note, the patient's metoprolol XL was discontinued due to her orthostasis. I will continue to hold this for now; however, the patient should follow up with the primary care provider and determine if this should be added back. FOLLOWUP CONCERNS: The patient is being discharged home today, 06/13/17. The patient should follow up with Dr. Gladis Johns in the next 4 to 7 days. ACTIVITY LEVEL: As tolerated. DIET: Regular. CONDITION ON DISCHARGE: Stable. TIME SPENT: Twenty-five minutes was spent discharging this patient. [id number]/[facility] #: [id number] MTDD
[2017-06-15] MEDS ORDERED: Warfarin TAB(*) 5 MG PO SCH (17:00)
== END 2017-06-13 16:15 | disposition home or self-care (01) ==
LOC: ED 20:28 → MEDTELE 23:09
PROVIDERS: ADMIT Pediatrics; ATTEND Hospitalist
DX: R42 Dizziness and giddiness (principal); E87.1 Hypo-osmolality and hyponatremia; E86.9 Volume depletion, unspecified; I95.1 Orthostatic hypotension; I10 Essential (primary) hypertension; I48.91 Unspecified atrial fibrillation; Z95.0 Presence of cardiac pacemaker; Z79.01 Long term (current) use of anticoagulants; Z87.891 Personal history of nicotine dependence; Z79.899 Other long term (current) drug therapy; Z87.440 Personal history of urinary (tract) infections
CPT/HCPCS: 36415; 70450; 71010; 80048; 80051; 80053; 81003; 81015; 82550; 83605; 83735; 83880; 83930; 83935; 84300; 84443; 84484; 85025; 85379; 85610; 85730; 86140; 87077; 87086; 87186; 93005; 99284; A9270-GY; G0378; G8978-GP-CH; G8979-GP-CH; G8980-GP-CH; J1644

== ENCOUNTER 2017-06-18 12:12 | Inpatient (IN) | payer MEDICARE, BC ==
[2017-06-18] MEDS ORDERED: NS 0.9% 1000 ML* 1,000 ML IV ONE (13:00)
[2017-06-18 13:13] LABS: Hematocrit 38 % (35-47); Hemoglobin 13.1 g/dl (12.0-16.0); Mean Corpuscular HGB Conc 34 g/dl (31-36); Mean Corpuscular Hemoglobin 32 pg (27-31); Mean Corpuscular Volume 94 fL (80-97); Mean Platelet Volume 8 um3 (7.4-10.4); Red Blood Count 4.05 10^6/ul (4.0-5.4); Red Cell Distribution Width 13 % (10.5-15); White Blood Count 7.5 10^3/ul (3.5-10.8)
[2017-06-18 13:28] LABS: Albumin 3.5 g/dL (3.2-5.2); BUN/Creatinine Ratio 16.7 (8-20); Calcium 8.9 mg/dL (8.6-10.3); EGFR African American 82.3 (>60); Potassium 4.2 mmol/L (3.5-5.0); Total Bilirubin 0.6 mg/dL (0.2-1.0); Total Protein 6.5 g/dL (6.4-8.9)
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
[2017-06-18] MEDS ORDERED: Cefepime 1 GM IV - ED ONCE IVPB ONE ×2 (14:00)
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
[2017-06-18] MEDS ORDERED: NS 0.9% 50 ML* 0 ML ONE (14:13)
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
[2017-06-18] MEDS ORDERED: Zolpidem TAB* 5 MG PO PRN (14:23)
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
[2017-06-18] MEDS ORDERED: Ibuprofen TAB* 600 MG PO PRN (14:32)
[2017-06-18] MEDS: Acetaminophen TAB* 325 MG PO PRN ×2 (14:56→21:44)
[2017-06-18] MEDS ORDERED: Warfarin TAB(*) 2.5 MG PO SCH (15:00)
[2017-06-18] MEDS: Sotalol TAB* 80 MG PO SCH (17:53)
[2017-06-18] MEDS: Warfarin TAB(*) 4 MG PO SCH (17:53)
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
[2017-06-19] MEDS: Cefepime(*) 1 GM in NS 0.9% 50 ML* 50 ML IVPB SCH ×2 (01:40→14:00)
[2017-06-19 06:37] LABS: Hematocrit 35 % (35-47); Hemoglobin 11.9 g/dl (12.0-16.0); Mean Corpuscular HGB Conc 35 g/dl (31-36); Mean Corpuscular Hemoglobin 32 pg (27-31); Mean Corpuscular Volume 92 fL (80-97); Mean Platelet Volume 8 um3 (7.4-10.4); Red Blood Count 3.74 10^6/ul (4.0-5.4); Red Cell Distribution Width 13 % (10.5-15); White Blood Count 4.6 10^3/ul (3.5-10.8)
[2017-06-19 06:55] LABS: BUN/Creatinine Ratio 13.9 (8-20); Calcium 8.4 mg/dL (8.6-10.3); EGFR African American 98.3 (>60); EGFR Non-African American 76.4 (>60)
[2017-06-19] MEDS: Aspirin EC Low Dose* 81 MG TAB.EC PO SCH (08:52)
[2017-06-19] MEDS: Multivitamins/Minerals TAB PO SCH (08:52)
[2017-06-19] MEDS: Cyanocobalamin TAB* 500 MCG PO SCH (08:52)
[2017-06-19] MEDS: Lisinopril TAB* 5 MG PO SCH (08:53)
[2017-06-19] MEDS: Cholecalciferol TAB* 400 UNIT PO SCH (08:53)
[2017-06-19] MEDS: Sotalol TAB* 80 MG PO SCH ×2 (08:53→17:37)
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
[2017-06-19] MEDS: Warfarin TAB(*) 4 MG PO SCH (17:37)
[2017-06-20] MEDS: Cefepime(*) 1 GM in NS 0.9% 50 ML* 50 ML IVPB SCH ×2 (02:18→14:11)
[2017-06-20 08:55] LABS: BUN/Creatinine Ratio 14.6 (8-20); Calcium 8.6 mg/dL (8.6-10.3); EGFR African American 84.6 (>60); EGFR Non-African American 65.8 (>60); Potassium 3.9 mmol/L (3.5-5.0)
[2017-06-20] MEDS: Cyanocobalamin TAB* 500 MCG PO SCH (10:16)
[2017-06-20] MEDS: Cholecalciferol TAB* 400 UNIT PO SCH (10:18)
[2017-06-20] MEDS: Sotalol TAB* 80 MG PO SCH ×2 (10:18→17:55)
[2017-06-20] MEDS: Aspirin EC Low Dose* 81 MG TAB.EC PO SCH (10:19)
[2017-06-20] MEDS: Lisinopril TAB* 5 MG PO SCH (10:19)
[2017-06-20] MEDS: Multivitamins/Minerals TAB PO SCH (10:19)
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
[2017-06-21] MEDS: Cefepime(*) 1 GM in NS 0.9% 50 ML* 50 ML IVPB SCH ×2 (01:56→13:52)
[2017-06-21] MEDS: Acetaminophen TAB* 325 MG PO PRN (07:32)
[2017-06-21] MEDS: Sotalol TAB* 80 MG PO SCH (08:27)
[2017-06-21] MEDS: Cyanocobalamin TAB* 500 MCG PO SCH (08:28)
[2017-06-21] MEDS: Multivitamins/Minerals TAB PO SCH (08:28)
[2017-06-21] MEDS: Cholecalciferol TAB* 400 UNIT PO SCH (08:28)
[2017-06-21] MEDS: Lisinopril TAB* 5 MG PO SCH (08:28)
[2017-06-21 09:16] LABS: BUN/Creatinine Ratio 15.9 (8-20); Calcium 8.8 mg/dL (8.6-10.3); EGFR African American 84.6 (>60); EGFR Non-African American 65.8 (>60); Potassium 4.5 mmol/L (3.5-5.0)
[2017-06-21] MEDS: Aspirin EC Low Dose* 81 MG TAB.EC PO SCH (09:32)
[2017-06-21 13:49] VITALS: BP 136/81
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
[2017-06-22] MEDS ORDERED: Warfarin TAB(*) 5 MG PO SCH (14:23)
== END 2017-06-21 15:30 | disposition home or self-care (01) | DRG 690 ==
LOC: ED 12:12 → MED 14:42
PROVIDERS: ADMIT Internal Medicine; ATTEND Internal Medicine
DX: N39.0 Urinary tract infection, site not specified (principal); E87.1 Hypo-osmolality and hyponatremia; I48.91 Unspecified atrial fibrillation; I49.5 Sick sinus syndrome; B96.20 Unspecified Escherichia coli [E. coli] as the cause of diseases classified elsewhere; B96.5 Pseudomonas (aeruginosa) (mallei) (pseudomallei) as the cause of diseases classified elsewhere; I10 Essential (primary) hypertension; S20.219A Contusion of unspecified front wall of thorax, initial encounter; S30.1XXA Contusion of abdominal wall, initial encounter; Z66 Do not resuscitate; V49.9XXA Car occupant (driver) (passenger) injured in unspecified traffic accident, initial encounter; Y92.9 Unspecified place or not applicable; Z95.0 Presence of cardiac pacemaker; Z79.01 Long term (current) use of anticoagulants; Z79.82 Long term (current) use of aspirin; Z79.899 Other long term (current) drug therapy; Z88.5 Allergy status to narcotic agent; Z88.2 Allergy status to sulfonamides; Z88.8 Allergy status to other drugs, medicaments and biological substances; Z82.49 Family history of ischemic heart disease and other diseases of the circulatory system; Z84.1 Family history of disorders of kidney and ureter
CPT/HCPCS: 36415; 70450; 71250; 72125; 74176; 80048; 80053; 84484; 85025; 85610; 93005; A9270-GY; J0692

== ENCOUNTER 2018-06-18 10:43 | Emergency (ER) | payer MEDICARE, BC ==
--- OUTSIDE RECORDS SUMMARY | 2018-06-18 11:08 | XMS REPORT ---
:1930 External Reference #:[id number] Author Organization [employer] Address [address] [place] [address] Phone [phone] Care Team Providers Name Role Phone Gladis Johns MD Primary Care Physician Unavailable Payers Type Date Identification Numbers Payment Provider Subscriber Medicare Primary Effective: Policy Number: Medicare Machelle Dasilva 1995 [id number] PayID: [id number] [address] [place] [address] Medigap Part B Policy Number: [id number] [facility] Machelle Dasilva Group Number: [id number] [address] PayID: [id number] [place] [address] Medigap Part B Expires: 2011 Policy Number: [facility]/ Machelle Dasilva [id number] [place] Group Number: [id number] [address] [place] [address] Problems Date Description Provider Status Onset: 04/16/2016 Paroxysmal atrial fibrillation Cordelia Molina M.D. Active Onset: 03/25/2014 Atrial fibrillation Cordelia Molina M.D. Active Onset: 03/25/2014 Orthostatic hypotension Cordelia Molina M.D. Active Onset: 03/25/2014 Sinus node dysfunction Cordelia Molina M.D. Active Onset: 03/25/2014 Essential hypertension Cordelia Molina M.D. Active Onset: 03/25/2014 Cardiac pacemaker in situ Cordelia Molina M.D. 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 [employer] Cigarette Use Never Smoked Cigarettes ETOH Use Denies alcohol use Smoking Patient has never smoked Recreational Drug Use Denies Drug Use Daily Caffeine Does Not Consume Caffeine Exercise Type/Frequency Exercises regularly Walks in [place], [place]mill [place] Allergies, Adverse Reactions, Alerts Date Description Reaction Status Severity Comments 03/25/2014 Sulfa Antibiotics active rash 03/25/2014 Cipro active rash 03/25/2014 General Anesthesia active hallucinations Medications Medication Date Status Form Strength Qnty SIG Indications Ordering Provider Sotalol HCL Active Tablets 80mg 135tab take 11/08 Cordelia 013 s tab by [place], mouth M.D. every morning and 1 tab every night Metoprolol Active Tablets ER 25mg 90tabs 1/2 tab by Cordelia Succinate ER 013 24HR mouth [place], daily for M.D. one week then stop. Aspirin Active Tablets 81mg 1 by mouth Unknown 000 every day Calcium 600 Active One po Unknown 000 daily Ocuvite Adult Active Capsules 1 cap by Unknown 50+ 000 mouth every morning Osteo Bi-Flex Active One po Unknown Regular 000 daily Strength Vitamin D-400 Active Tablets 400Unit 1 by mouth Unknown 000 every day Centrum Active Tablets 90tabs 1 by mouth Unknown 000 every day [place] 3-6-9 Active Capsules 1 by mouth Unknown Complex 000 every day Vitamin B-12 Active Tablets 500mcg One po Unknown 000 every day Natural Warfarin Active Tablets 5mg 100tab as Unknown Sodium 000 s directed Lorazepam Active Tablets 0.5mg 20tabs prn Unknown 000 Imodium A-D Active Tablets 2mg one by Unknown 000 mouth three times a day as needed for diarrhea Probiotic Active daily Unknown 000 Amlodipine Hx Tablets 2.5mg 30tabs 1 by mouth R07.9 Cordelia Besylate 016 - every day Jesse, M.D. 016 Lisinopril Hx Tablets 5mg 90tabs 1 by mouth I10 Cordelia 014 - every day Jesse, M.D. 018 Sotalol HCL Hx Tablets 80mg 7tabs 11/08 tab by Cordelia (AF) 012 - mouth [place], twice a M.D. 013 day Lisinopril Hx Tablets 10mg 90tabs 11/08 tab by Cordelia 012 - mouth Jesse, every day M.D. 014 Lisinopril Hx Tablets 10mg 30tabs 1 po qd Cordelia 012 - [place], M.D. 012 Ambien /0 Hx 5mg prn Unknown 000 - 018 Elmiron 0 Hx Capsules 100mg 90caps take one Unknown 000 - capsule po daily 017 Medications Administered in Office Medication Date Status Form Strength Qnty SIG Indications Ordering Provider Depomedrol Administered Injection [place]garry, Lien, 40MG 010 PA Vital Signs Date Vital Result Comment 06/08/2018 Height 59 inches 4'11" Heart Rate 68 /min BP Systolic 154 mmHg home cuff BP Diastolic 98 mmHg home cuff BP Systolic Sitting 112 mmHg regular cuff manual BP Diastolic Sitting 58 mmHg regular cuff manual BP Systolic Standing 90 mmHg regular cuff manual BP Diastolic Standing 56 mmHg regular cuff manual 04/27/2018 Height 59 inches 4'11" Weight 129.12 lb Heart Rate 58 /min BP Systolic Sitting 100 mmHg Lue reg cuff BP Diastolic Sitting 62 mmHg Lue reg cuff BP Systolic Standing 98 mmHg Lue BP Diastolic Standing 60 mmHg Lue Respiratory Rate 16 /min BMI (Body Mass Index) 26.1 kg/m2 Ejection Fraction 64% as of 2011 echo 09/27/2017 Height 59 inches 4'11" Weight 128.00 lb w/o shoes Heart Rate 78 /min BP Systolic Sitting 120 mmHg LA reg cuff BP Diastolic Sitting 92 mmHg LA reg cuff BP Systolic Standing 130 mmHg LA reg cuff BP Diastolic Standing 98 mmHg LA reg cuff BMI (Body Mass Index) 25.9 kg/m2 Ejection Fraction 65% Echo 03/08/12 04/19/2017 Height 59 inches 4'11" Weight 128.00 lb without shoes Heart Rate 82 /min BP Systolic Sitting 138 mmHg Lue reg cuff BP Diastolic Sitting 70 mmHg Lue reg cuff BP Systolic Standing 136 mmHg Lue reg cuff BP Diastolic Standing 78 mmHg Lue reg cuff Respiratory Rate 17 /min BMI (Body Mass Index) 25.9 kg/m2 Ejection Fraction 64% date 03/08/2012 ECHO 09/14/2016 Height 60 inches 5'0" Weight 127.00 lb Heart Rate 64 /min BP Systolic Sitting 128 mmHg LA reg cuff BP Diastolic Sitting 82 mmHg LA reg cuff BP Systolic Standing 124 mmHg LA BP Diastolic Standing 78 mmHg LA Respiratory Rate 14 /min BMI (Body Mass Index) 24.8 kg/m2 Ejection Fraction 64% 03/08/12 04/16/2016 Height 60 inches 5'0" Weight 129.00 lb w/o shoes Heart Rate 72 /min reg BP Systolic Sitting 116 mmHg Rue, reg cuff BP Diastolic Sitting 72 mmHg Rue, reg cuff BP Systolic Standing 116 mmHg Rue BP Diastolic Standing 74 mmHg Rue Respiratory Rate 16 /min BMI (Body Mass Index) 25.2 kg/m2 Ejection Fraction 64% as of 03/08/12 03/26/2016 Height 60 inches 5'0" Weight 128.00 lb with out shoes Heart Rate 80 /min BP Systolic Sitting 140 mmHg LA reg cuff BP Diastolic Sitting 90 mmHg LA reg cuff BP Systolic Standing 134 mmHg La reg cuff BP Diastolic Standing 90 mmHg La reg cuff Respiratory Rate 17 /min BMI (Body Mass Index) 25.0 kg/m2 Ejection Fraction 64% date 03/08/12 ECHO 09/24/2015 Height 60 inches 5'0" Weight 125.00 lb w/o shoes Heart Rate 66 /min reg BP Systolic Sitting 100 mmHg Lue, reg cuff BP Diastolic Sitting 66 mmHg Lue, reg cuff BP Systolic Standing 102 mmHg Lue BP Diastolic Standing 66 mmHg Lue Respiratory Rate 18 /min BMI (Body Mass Index) 24.4 kg/m2 Ejection Fraction 64% as of 03/08/12 echo 03/26/2015 Height 60 inches 5'0" Weight 127.00 lb w/o shoes Heart Rate 68 /min reg BP Systolic Sitting 142 mmHg LA, reg cuff BP Diastolic Sitting 80 mmHg LA, reg cuff BP Systolic Standing 140 mmHg LA BP Diastolic Standing 86 mmHg LA Respiratory Rate 16 /min BMI (Body Mass Index) 24.8 kg/m2 Ejection Fraction 64% 03/08/2012 09/24/2014 Height 60 inches 5'0" Weight 124.00 lb with shoes Heart Rate 82 /min BP Systolic Sitting 130 mmHg La reg cuff BP Diastolic Sitting 90 mmHg La reg cuff BP Systolic Standing 134 mmHg La reg cuff BP Diastolic Standing 90 mmHg La reg cuff Respiratory Rate 16 /min BMI (Body Mass Index) 24.2 kg/m2 04/08/2014 Height 60 inches 5'0" Weight 127.50 lb no shoes, up 1# Heart Rate 70 /min regular BP Systolic Sitting 128 mmHg LA, regular cuff BP Diastolic Sitting 72 mmHg LA, regular cuff BP Systolic Standing 128 mmHg LA BP Diastolic Standing 74 mmHg LA Respiratory Rate 16 /min BMI (Body Mass Index) 24.9 kg/m2 03/25/2014 Height 60 inches 5'0" Weight 126.50 lb no shoes, down 3 # from 03/19 Heart Rate 66 /min regular BP Systolic Sitting 112 mmHg LA, regular cuff BP Diastolic Sitting 72 mmHg LA, regular cuff BP Systolic Standing 100 mmHg LA BP Diastolic Standing 72 mmHg LA Respiratory Rate 16 /min BMI (Body Mass Index) 24.7 kg/m2 Results Test Date Test Result H/L Range Note Laboratory test finding 08/10/2012 Inr 1.39 High 0.82-1.17 1 Laboratory test finding 08/09/2012 Inr 0.97 0.82-1.17 2 1 Recommended INR for Patients on Oral Anticoagulants Prophylaxis 2.0 - 3.0 Treatment of thrombosis 2.0 - 3.0 Prevention of embolism 2.0 - 3.0 Prevention of embolism from prosthetic heart valves 2.5 - 3.5 2 Recommended INR for Patients on Oral Anticoagulants Prophylaxis 2.0 - 3.0 Treatment of thrombosis 2.0 - 3.0 Prevention of embolism 2.0 - 3.0 Prevention of embolism from prosthetic heart valves 2.5 - 3.5 Procedures Date CPT Code Description Status 04/27/2018 75402 EKG Tracing & Interpretation Completed 03/15/2018 24878 Pace Maker Eval W/Iterative Adjment Dual Lead Completed 03/15/2018 48996 Pace Maker Eval W/Iterative Adjment Dual Lead Completed 09/27/2017 94600 Pace Maker Eval W/Iterative Adjment Dual Lead Completed 09/27/2017 37253 Pace Maker Eval W/Iterative Adjment Dual Lead Completed 09/27/2017 14096 EKG Tracing & Interpretation Completed 04/19/2017 64962 EKG Tracing & Interpretation Completed 03/18/2017 51197 Pace Maker Eval W/Iterative Adjment Dual Lead Completed 09/14/2016 84061 Pace Maker Eval W/Iterative Adjment Dual Lead Completed 03/26/2016 23818 EKG Tracing & Interpretation Completed 03/26/2016 53629 EKG Tracing & Interpretation Completed 03/24/2016 19368 Pace Maker Eval W/Iterative Adjment Dual Lead Completed 09/24/2015 03665 Pace Maker Eval W/Iterative Adjment Dual Lead Completed 03/26/2015 72185 Interrogation Device Eval In Person W/DR Completed Analysis,Single,Dual,Mul 03/26/2015 35112 EKG Tracing & Interpretation Completed 09/24/2014 51940 EKG Tracing & Interpretation Completed 09/24/2014 01116 Pace Maker Eval W/Iterative Adjment Dual Lead Completed 03/25/2014 02724 Pace Maker Eval W/Iterative Adjment Dual Lead Completed 03/25/2014 17229 EKG Tracing & Interpretation Completed 07/26/2013 66270 Pace Maker Eval W/Iterative Adjment Dual Lead Completed 07/26/2013 30119 EKG Tracing & Interpretation Completed 03/13/2013 36158 Pace Maker Eval W/Iterative Adjment Dual Lead Completed 09/13/2012 99722 Pace Maker Eval W/Iterative Adjment Dual Lead Completed 09/13/2012 95256 EKG Tracing & Interpretation Completed 08/24/2012 30259 Holter Monitor Review (24 hr)dr review & interp only Completed 08/18/2012 84544 Holter Monitor Review (24 hr)dr review & interp only Completed 08/10/2012 74606 EKG, Interpretation Only Completed 03/01/2012 69045 Rad Exam; Hip Unilat Completed 03/01/2012 82672 Rad Exam; Pelvis Completed 12/02/2009 23618 Inject/Drain Joint/Bursa Major W/O US Completed Encounters Type Date Location Provider CPT E/M Dx Office Visit 04/27/2018 3:20p [facility] Cordelia Molina M.D. 97258 I49.5 Automated Process Operator Z95.0 I48.0 I10 Office Visit 09/27/2017 3:15p [facility] Cordelia Molina M.D. 18922 I48.0 Automated Process Operator I49.5 Z95.0 R07.89 Office Visit 06/18/2017 9:22a [facility] Sharon Driver N.P. 16448 N30.00 Hospitalists I48.0 E87.1 Office Visit 06/13/2017 7:23a [facility], [address] R42 Hospitalists D.O. I48.91 E87.1 Office Visit 06/12/2017 7:22a [facility] [address] R42 Hospitalists I48.91 E87.1 Office Visit 04/19/2017 1:45p [facility] Cordelia Molina M.D. 68352 Z95.0 [facility] I48.0 I49.5 I10 Office Visit 09/14/2016 3:00p [facility] Cordelia Molina M.D. 46215 Z95.0 [facility] I48.0 I10 Office Visit 04/16/2016 10:20a [facility] Cordelia Molina M.D. 74555 R07.89 [facility] I48.0 Z95.0 R53.1 Office Visit 03/26/2016 2:30p [facility] FABIEN Vasquez 21578 R07.9 I10 I45.19 I48.0 Office Visit 09/24/2015 3:15p [facility] Cordelia Molina M.D. 31502 I48.0 [facility] Z95.0 I10 I45.19 D64.9 Office Visit 03/26/2015 3:00p [facility] Cordelia Molina M.D. 92680 427.31 Automated Process Operator 401.9 V45.01 Office Visit 09/24/2014 11:15a [facility] Cordelia Molina M.D. 93745 V45.01 Automated Process Operator 427.81 427.31 401.9 426.4 Office Visit 04/08/2014 2:00p [facility] FABIEN Reilyl 99996FAT 458.0 401.9 427.31 V45.01 Office Visit 03/25/2014 1:45p [facility] Cordelia Molina M.D. 71372 V45.01 Automated Process Operator 401.9 427.81 458.0 427.31 Office Visit 07/12/2013 9:07a [facility], Sharon Driver, N.P. 75633 786.50 Hospitalists 486 427.31 286.7 Office Visit 07/11/2013 9:06a [facility], Sharon Driver, N.P. 63818 786.50 Hospitalists 427.31 276.51 286.7 Office Visit 07/10/2013 9:06a [facility], 54361 786.50 Assoc,pc Hospitalists N.P. 427.31 276.51 286.7 Office Visit 07/09/2013 9:05a [facility], 03155 786.50 Assoc,pc Hospitalists N.P. 427.31 276.51 286.7 Office Visit 07/08/2013 9:05a [facility], 13373 427.31 Assoc,pc Hospitalists N.P. 786.50 276.51 286.7 Office Visit 07/05/2013 9:03a [facility], Sanket Beauchamp, 21145 786.50 Hospitalists N.P. 427.31 276.51 286.7 Office Visit 03/13/2013 3:15p [facility] Cordelia Molina M.D. 61337 427.31 Automated Process Operator 401.9 Office Visit 10/11/2012 1:30p [facility] Nurse Visit 73212 401.9 Automated Process Operator Office Visit 09/13/2012 11:30a [facility] Cordelia Molina M.D. 99645 427.31 Automated Process Operator 427.81 Office Visit 08/19/2012 8:05a [facility], [place] [address] 009.1 Hospitalists 427.31 401.9 427.81 Office Visit 08/17/2012 8:05a [facility] [address] 009.1 Hospitalists 427.31 401.9 427.81 Office Visit 08/11/2012 1:05p [facility], Natalie Galvez, 24417 434.11 Hospitalists Samira 427.31 Office Visit 08/10/2012 1:05p [facility], Natalie Galvez, 94274 434.11 Hospitalists M.D. 427.31 Office Visit 08/09/2012 9:27a [facility] Lalitha Calikaty, 05656 782.0 Services Of Automated Process Operator M.D. Office Visit 08/09/2012 1:04p [facility], Natalie Galvez, 07820 434.11 Hospitalists M.D. 427.31 Office Visit 08/08/2012 9:27a [facility] David Parsonsney, 09532 782.0 Services Of Automated Process Operator M.DJennifer 729.2 Office Visit 08/08/2012 8:07a [facility], Natalie Galvez, 78843 434.11 Hospitalists M.D. 427.31 Office Visit 08/07/2012 9:25a [facility] Lalithafroylan Calikaty, 60149 782.0 Services Of Automated Process Operator M.D. Office Visit 08/07/2012 8:06a [facility], Natalie Galvez, 43535 434.11 Hospitalists M.D. 427.31 Office Visit 08/04/2012 3:55p [facility], Dann Vera, 99923 786.51 Hospitalists M.D. 427.31 Office Visit 08/02/2012 3:55p [facility], Dann Vera, 40366 786.51 Hospitalists M.D. 427.31 Office Visit 03/01/2012 1:30p [facility] Freedman M.D. 87740 727.09 C.M.A. 726.5 Office Visit 12/02/2009 1:30p [facility] [place] [address] 716.96 C.M.A. Office Visit 11/28/2009 1:15a [facility], Rogelio Kerr, 07647 728.87 Hospitalists M.D. Office Visit 11/27/2009 12:15a [facility], Natalie Galvez, 77623 782.0 Hospitalists M.D. Plan of Care 06/08/2018 - Tucker JarvisP.I49.5 Sick sinus ugmpqvnnY65.91 Unspecified atrial fibrillationFollow up:September; OV 04/2019 LSRecommendations:We will decrease metoprolol to help with your blood pressure Decrease to 1/2 tab by mouth daily for 1 week then STOP Check BP and call in 2 weeks with BP readings
[2018-06-18] MEDS ORDERED: Labetalol IV* 5 MG/ML 20 ML VIAL IV PUSH ONE (11:24)
--- NOTE | 2018-06-18 11:32 | ED ---
GI/ HPI - HPI Summary HPI Summary: This is scribe Kindra Simpson documenting for attending Marie Trejo MD This patient is a 87 year old F presenting to [facility] due to is concern for a UTI. Patient reports longstanding hx of frequent UTI, with the last in March 2018. Patient reports she just hasnt felt well this past week and her head is fuzzy with difficulty focusing eyes and weakness. Patient denies SOB, fever , and abdominal pain. When asked about her BP on 206/106 on the monitor she states that she typically has a systolic pressure of 110. States he cashier assistant took her off Lisinopril roughly 6 weeks ago. She has not taken Metoporol since yesterday 06/17. Her blood pressure this morning was 155/98. Patient additionally c/o right calf pain since two nights ago. She states it started with severe cramping that improved with residual soreness since. She states she is concerned for a blood clot. She is currently taking Warfarin. Denies hx of blood clots and [place]. Patient has a pacemaker. PMHx of bladder prolapse, for which she wears a pessary. Patient is seen by Dr. Johns (PCP) and Dr. Anaya (urology). Medications and Allergies reviewed. I, Dr. Trejo ,personally performed the services described in this documentation as scribed in my presence and it is both accurate and complete. - History of Current Complaint Chief Complaint: EDUrogenitalProblems Time Seen by Provider: 06/18/18 11:09 Stated Complaint: POSS UTI/RT LEG PAIN Hx Obtained From: Patient Onset/Duration: Started Days Ago, Still Present Timing: Constant Severity: Mild Current Severity: Mild Pain Intensity: 0 Location of Pain: Other - RLE Pain Characteristics: Cramping Associated Signs and Symptoms: Positive: Weakness, Lightheadedness, Other: - general malaise; right leg pain Aggravating Factor(s): Nothing Alleviating Factor(s): Nothing - Additional Pertinent History Primary Care Physician: [id number] - Allergy/Home Medications Allergies/Adverse Reactions: Allergies Allergy/AdvReac Type Severity Reaction Status Date / Time ciprofloxacin Allergy Vomiting Verified 06/18/18 10:56 oxycodone Allergy Vomiting Verified 06/18/18 10:56 Sulfa (Sulfonamide Allergy Rash Verified 06/18/18 10:56 Antibiotics) General anesthesia AdvReac Severe Hallucinati Uncoded 08/12/17 14:19 ons Home Medications: Home Medications Aspir-Low 81 mg PO DAILY 06/18/18 [History Confirmed 06/18/18] Ocuvite Adult 50 Plus Softgel 1 tab PO DAILY 06/18/18 [History Confirmed ] [place] 3-6-9 Complex Softgel 1 tab PO DAILY 06/18/18 [History Confirmed 06/18/18] Osteo Bi-Flex Caplet 1 cap PO DAILY 06/18/18 [History Confirmed 06/18/18] Vitamin D3 400 mg PO DAILY 06/18/18 [History Confirmed 06/18/18] PMH/Surg Hx/FS Hx/Imm Hx Endocrine/Hematology History: Reports: Hx Anticoagulant Therapy - COUMADIN Denies: Hx Diabetes, Hx Thyroid Disease Cardiovascular History: Reports: Hx Atrial Fibrillation, Hx Hypertension, Hx Pacemaker/ICD - JANUARY 2012 Respiratory History: Denies: Hx Asthma, Hx Chronic Obstructive Pulmonary Disease (COPD) GI History: Reports: Other GI Disorders - COLITIS, INTESTINAL CYSTS History: Denies: Hx Renal Disease Musculoskeletal History: Reports: Hx Arthritis Denies: Hx Back Problems, Hx Bursitis, Hx Congenital Bone Abnormalities, Hx Fibromyalgia, Hx Gout, Hx Orthopedic Injury, Hx Osteoporosis, Hx Scoliosis, Hx Tendonitis, Other Musculoskeletal History Sensory History: Reports: Hx Cataracts, Hx Contacts or Glasses, Hx Vision Problem - MACULAR DEGENERATION, Hx Hearing Problem Denies: Hx Hearing Aid Opthamlomology History: Reports: Hx Cataracts, Hx Contacts or Glasses, Hx Vision Problem - MACULAR DEGENERATION Neurological History: Denies: Hx Dementia, Hx Seizures Psychiatric History: Denies: Hx Substance Abuse - Cancer History Hx Chemotherapy: No Hx Radiation Therapy: No - Surgical History Surgery Procedure, Year, and Place: pacemaker placement 2010, hysterectomy 1969 , tonsillectomy 194 Hx Anesthesia Reactions: No - Immunization History Date of Tetanus Vaccine: 2011 Date of Influenza Vaccine: unk Infectious Disease History: No Infectious Disease History: Denies: Hx Hepatitis, Hx Human Immunodeficiency Virus (HIV), Traveled Outside the [place] in Last 30 Days - Family History Known Family History: Positive: Cardiac Disease - Father, Other - No- Breast CA. Positive unspecified "kidney problem" to father - Social History Alcohol Use: None Substance Use Type: Reports: None Smoking Status (MU): Former Smoker Review of Systems Positive: Fatigue - "hasn't felt well", Other - lightheaded. Negative: Fever Positive: Blurred Vision - "difficulty focusing" Cardiovascular: Negative Negative: Shortness Of Breath Negative: Abdominal Pain Positive: frequency Musculoskeletal: Negative Skin: Negative Positive: Weakness - generalized Psychological: Normal All Other Systems Reviewed And Are Negative: Yes Physical Exam - Summary Physical Exam Summary: Appearance: Well-appearing, no pain distress, well-nourished, hypertensive (206/ 106) Skin: Warm, color reflects adequate perfusion, dry Head: Normal Head/Face inspection, atraumatic Eyes: Conjunctiva clear ENT: Normal inspection Neck: Supple, no nodes, no JVD Respiratory: Lungs clear, normal breath sounds, no respiratory distress Cardio: RRR, No murmur, pulses normal, brisk capillary refill Abdomen: Soft, nontender Bowel sounds: Present Musculoskeletal: Strength Intact/ROM intact, tenderness RLE, no cord, neg Jered' s, bilat edema 1+ right, trace left . Psychological: Normal Neuro: Alert, muscle tone normal, no focal deficit Triage Information Reviewed: Yes Vital Signs On Initial Exam: Initial Vitals Temp Pulse Resp BP Pulse Ox 97.1 F 76 16 155/108 98 06/18/18 10:57 06/18/18 10:57 06/18/18 10:57 06/18/18 10:57 06/18/18 10:57 Vital Signs Reviewed: Yes Diagnostics - Vital Signs Vital Signs Temp Pulse Resp BP Pulse Ox 06/18/18 10:57 97.1 F 76 16 155/108 98 - Laboratory Result Diagrams: 06/18/18 12:01 06/18/18 12:01 Lab Statement: Any lab studies that have been ordered have been reviewed, and results considered in the medical decision making process. - Radiology CXR Radiology Interpretation Completed By: Radiologist - NO EVIDENCE FOR ACUTE FINDING. ED Physician has reviewed this report. - EKG 1134 EKG Interpretation: 100% paced, RBBB EKG Comparison: No Significant Change - compared with 06/18/17 - Additional Comments Diagnostic Additional Comments: A Venous Doppler US of the RLE reveals, as per radiologist: NO EVIDENCE FOR DEEP VENOUS THROMBOSIS. ED Physician has reviewed this report. Re-Evaluation - Re-Evaluation First Eval Re-Evaluation Time: 14:05 Change: Improved Comment: BP 157/82, P 63. Pt without CP, SOB. Informed of US, CXR, lab and urine results. Mariaelenahin 1gm hanging. Daughter in law with pt. Pt agrees to DC. GIGU Course/Dx - Course Course Of Treatment: 87 y/o F presents with concern for a UTI and right DVT. She reports a history of frequent UTIs. She additionally reports residual right calf soreness after significant cramping two nights ago. A venous US is negative for DVT. Upon initial evaluation patients blood pressure is 206/106. She states that she has been taken of Lisinopril for the past 6 weeks,and has been taken off Metoprolol since yesterday. Patient is given Labetalol. A UA reveals bacteria, RBC, and WBC, which is treated with IV Ceftriaxone. Bloodwork is unremarkable. A CXR reveals no active cardiopulmonary disease. An EKG is 100 % paced with a RBBB, unchanged from 06/18/17. BP improves while in ED. Patient will be dsicharged and is agreeable with this plan. - Diagnoses Differential Diagnoses - Female: Urinary Tract Infection, Other - DVT Provider Diagnoses: UTI (urinary tract infection), Hypertension, poor control, Leg pain, right Discharge - Sign-Out/Discharge Documenting (check all that apply): Patient Departure - discharge - Discharge Plan Condition: Stable Disposition: HOME Prescriptions: Cephalexin CAP* [Keflex 500 CAP*] 500 mg PO BID #14 cap Patient Education Materials: Urinary Tract Infection in Women (ED), Leg Cramps (ED), Hypertensive Crisis (ED) Referrals: Gladis Johns MD [Primary Care Provider] - 2 Days Additional Instructions: You did not have hypertensive crisis, but your blood pressure was very high. The first blood pressure we obtained on you was 206/106. We gave you a dose of labetalol 10mg IV and your blood pressure came down to 158/82, pulse 63. You should continue your sotalol 40mg daily as directed. Continue to check your blood pressure at home and contact Dr. Johns for any elevated BP's that are symptomatic with chest pain or SOB or WHITAKER or dizziness, or for any BP higher than 180 on the top or 110 on the bottom. Your urine did look like a urinary tract infection, so we gave you one dose of ceftriaxone 1gram IV to start the treatment for UTI. We will contact you if you should take a different antibiotic based on the culture results. You should take your first dose of cephalexin 500mg tonight and continue that twice a day for one week. See Dr. Anaya if no improvement. You right leg did not have a blood clot on ultrasound and your INR was 2.11. Your BNP was 173 and your chest xray did not show any sign of congestive heart failure, so we do not think the leg swelling is from heart failure either. You may try over the counter magnesium 400mg once daily as needed for leg cramps. Return to the ER if you have any new or worsening symptoms. - Billing Disposition and Condition Condition: STABLE Disposition: Home
[2018-06-18 11:39] LABS: Urine Appearance Cloudy; Urine Blood 1+ (Negative); Urine Color Yellow; Urine Ketones Negative (Negative); Urine Protein Negative (Negative); Urine Red Blood Cell 3+(>10/hpf) (Absent); Urine Specific Gravity 1.003 (1.010-1.030); Urine Urobilinogen Negative (Negative); Urine White Blood Cell 3+(>20/hpf) (Absent)
--- NOTE | 2018-06-18 12:14 | RAD ---
INDICATION: Hypertension. COMPARISON: Comparison is made with a prior chest x-ray study from June 12, 2017. TECHNIQUE: A portable view of the chest was obtained. FINDINGS: The heart is within normal limits in size for this portable exam. There is a dual-chamber transvenous pacemaker present. 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 The lungs are underinflated and clear. No pleural effusion is seen. IMPRESSION: NO EVIDENCE FOR ACUTE FINDING.
[2018-06-18 12:18] LABS: ABS Basophils 0 10^3/ul (0-0.2); ABS Eosinophils 0.1 10^3/ul (0-0.6); ABS Lymphocytes 1.4 10^3/ul (1.0-4.8); ABS Monocytes 0.4 10^3/ul (0-0.8); ABS Neutrophils 3.7 10^3/ul (1.5-7.7); ABS Nucleated RBC 0 10^3/ul; Eosinophil % 1.4 % (0-6); Hematocrit 42 % (35-47); Hemoglobin 14.3 g/dl (12.0-16.0); Lymphocyte % 24.5 % (25-47); Mean Corpuscular HGB Conc 34 g/dl (31-36); Mean Corpuscular Hemoglobin 32 pg (27-31); Mean Corpuscular Volume 94 fL (80-97); Mean Platelet Volume 8.2 um3 (7.4-10.4); Nucleated Red Blood Cells % 0; Platelet Count 124 10^3/ul (150-450); Red Blood Count 4.43 10^6/ul (4.00-5.40); Red Cell Distribution Width 13 % (10.5-15); White Blood Count 5.6 10^3/ul (3.5-10.8)
[2018-06-18 12:40] LABS: INR 2.11 (0.77-1.02)
[2018-06-18 12:44] LABS: EGFR Non-African American 64.7 (>60)
--- NOTE | 2018-06-18 12:59 | RAD ---
INDICATION: Pain right lower extremity. COMPARISON: There are no prior studies available for comparison. TECHNIQUE: Multiple real-time, color flow and Doppler tracings of the right lower extremity were obtained. FINDINGS: The common femoral, femoral, profunda femoral and popliteal veins all demonstrate normal compressibility, augmentation with compression and phasic response with respiration. The posterior tibial and peroneal veins demonstrate normal compressibility and augmentation with compression. IMPRESSION: NO EVIDENCE FOR DEEP VENOUS THROMBOSIS.
[2018-06-18] MEDS ORDERED: cefTRIAXone(*) 1 GM in NS 0.9% 50 ML* 50 ML IVPB ONE (13:56)
[2018-06-18 14:48] VITALS: BP 151/71
--- NOTE | 2018-06-21 06:56 | PN ---
Progress Note - Progress Note Date of Service: 06/19/18 Note: Pt. seen in ER 06/19 and started on Keflex for a UTI. Urine culture today is growing 75-100K e. coli susceptible to keflex. No change in treatment needed at this time.
== END 2018-06-18 14:47 | disposition home or self-care (01) ==
LOC: ED 10:43
DX: R53.83 Other fatigue (principal); Z87.891 Personal history of nicotine dependence; H53.8 Other visual disturbances; N39.0 Urinary tract infection, site not specified; I10 Essential (primary) hypertension; M79.604 Pain in right leg
CPT/HCPCS: 36415; 71045; 80053; 81003; 81015; 82550; 82553; 83605; 83880; 84443; 84484; 85025; 85379; 85610; 85730; 87077; 87086; 87186; 93005; 96374; 99284; J0696